=== PATIENT | male | born 1990 | race American Indian/Alaskan Native ===

== ENCOUNTER 2019-02-28 04:26 | Emergency (ER) | payer SELFPAY ==
[2019-02-28 04:33] VITALS: BP 152/79
[2019-02-28] MEDS ORDERED: XYLOCAINE 2% INFILTRATI STA (07:45)
[2019-02-28] MEDS ORDERED: BOOSTRIX IM ONE (08:05)
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
== END 2019-02-28 08:23 | disposition home or self-care (01) ==
LOC: ED 04:26
DX: S51.012A Laceration without foreign body of left elbow, initial encounter (principal); F17.200 Nicotine dependence, unspecified, uncomplicated; F12.10 Cannabis abuse, uncomplicated; Y08.89XA Assault by other specified means, initial encounter; Y93.89 Activity, other specified; Y92.89 Other specified places as the place of occurrence of the external cause; Y99.8 Other external cause status
CPT/HCPCS: 90471; 90715

== ENCOUNTER 2020-11-22 13:58 | Emergency (ER) | payer SELFPAY ==
[2020-11-22 14:16] VITALS: BP 136/88
--- NOTE | 2020-11-22 14:50 | XRay Report ---
LEFT KNEE 3 VIEWS INDICATION / CLINICAL INFORMATION: Left knee pain. COMPARISON: None available. FINDINGS: BONES / JOINT(S): The joint spaces are well-maintained. No significant arthritis. There is no evidenc e of fracture, subluxation, destructive lesion or joint effusion. SOFT TISSUES: No significant abnormality. ADDITIONAL FINDINGS: None. Signer Name: Andrew White MD Signed: 11/22/2020 2:46 PM Workstation Name: [id number]
--- NOTE | 2020-11-22 15:54 | Emergency Department Report ---
ED General Adult HPI - General Chief complaint: Extremity Injury, Lower Stated complaint: LT LEG INJURY POSSIBLE FRACTURED Time Seen by Provider: 11/22/20 15:43 Source: patient Mode of arrival: Wheelchair Limitations: No Limitations - History of Present Illness Initial comments: 30-year-old male patient presents emergency department with complaints of tr aumatic left knee pain starting today. Patient states he was playing basketball when he jumped for the ball and "landed wrong." States he heard a "crack" in his left knee upon landing. He has been unable to bear weight on his left leg since the injury. No history of prior injuries to the left knee. Denies hip pain, ankle pain, foot pain, paresthesias, numbness, skin color changes. Denies all other complaints at this time. Severity scale (0 -10): 6 - Related Data Previous Rx's Medication Instructions Recorded Last Taken Type Acetaminophen/Codeine [Tylenol #3] 1 tab PO Q6H PRN #20 tab 02/10/15 Unknown Rx Famotidine [Pepcid] 20 mg PO BID #30 tablet 02/10/15 Unknown Rx Hyoscyamine Subl [Levsin Sl 0.125 0.125 mg SL Q6HR PRN #15 tab 02/10/15 Unknown Rx TAB] Promethazine [Phenergan TAB] 25 mg PO Q6HR PRN #20 tab 02/10/15 Unknown Rx Chlorhexidine Gluconate [Hibiclens] 10 ml TP BID #240 liquid 02/28/19 Unknown Rx cephALEXin [Keflex] 500 mg PO Q6HR #40 capsule 02/28/19 Unknown Rx Naproxen 500 mg PO BID #20 tablet 11/22/20 Unknown Rx Allergies Allergy/AdvReac Type Severity Reaction Status Date / Time shrimp Allergy Swelling Verified 11/22/20 14:12 ED Review of Systems ROS: Stated complaint: LT LEG INJURY POSSIBLE FRACTURED Other details as noted in HPI Other: CARDIOVASCULAR: Negative for chest pain. PULMONARY: Negative for dyspnea. GASTROINTESTINAL: Negative for abdominal pain. MUSCULOSKELETAL: Positive for left knee pain. NEUROLOGICAL: Negative for headache. INTEGUMENTARY: Negative for ecchymosis. ED Past Medical Hx - Past Medical History Previous Medical History?: No - Surgical History Past Surgical History?: No - Social History Smoking Status: Never Smoker Substance Use Type: None - Medications Home Medications: Home Medications Medication Instructions Recorded Confirmed Last Taken Type Acetaminophen/Codeine [Tylenol #3] 1 tab PO Q6H PRN #20 tab 02/10/15 Unknown Rx Famotidine [Pepcid] 20 mg PO BID #30 tablet 02/10/15 Unknown Rx Hyoscyamine Subl [Levsin Sl 0.125 0.125 mg SL Q6HR PRN #15 tab 02/10/15 Unknown Rx TAB] Promethazine [Phenergan TAB] 25 mg PO Q6HR PRN #20 tab 02/10/15 Unknown Rx Chlorhexidine Gluconate [Hibiclens] 10 ml TP BID #240 liquid 02/28/19 Unknown Rx cephALEXin [Keflex] 500 mg PO Q6HR #40 capsule 02/28/19 Unknown Rx Naproxen 500 mg PO BID #20 tablet 11/22/20 Unknown Rx ED Physical Exam - General Limitations: No Limitations - Other Other exam information: General: Awake, appropriately interactive, no acute distress. Neck: Supple. Full range of motion intact. Cardiovascular: Normal peripheral perfusion. Pulmonary: No respiratory distress. Patient is speaking normally without use of accessory muscles. Skin: No apparent rashes or lesions. Neurological: No facial asymmetry. Speech is clear. Follows commands. Patient is alert and oriented. Musculoskeletal: Tenderness to palpation along the lateral aspect of the left knee with mild soft tissue swelling. Flexion and extension mechanisms of the knee are painful but intact. Anterior drawer sign is negative. Valgus and varus stress tests are negative. Distal neurovascular and motor/sensory function intact. Psych: Cooperative. Appropriate mood and affect. ED Course Vital Signs 11/22/20 14:15 Temperature 98 F Pulse Rate 83 Respiratory 20 Rate Blood Pressure 136/88 [Right] O2 Sat by Pulse 100 Oximetry ED Medical Decision Making - Medical Decision Making Differential diagnosis including but not limited to: sprain, strain, fracture, contusion, dislocation, ligamentous injury, meniscal injury On reevaluation, patient remains stable. Repeat neurovascular exam remains intact. X-ray of the knee without acute process. History and exam findings suggestive of soft tissue injury; no clinical indication for further diagnostic work-up on an emergent basis at this time. Patient will be discharged home with knee immobilizer, crutches, appropriate analgesics, and referral to orthopedics for close outpatient follow-up. It was explained to the patient that his injury may be attributable to collateral ligament and/or meniscal disruption, which would require outpatient MRI for definitive diagnosis. Patient expressed understanding and is agreeable to plan of care. RICE precautions discussed. Strict return precautions provided. Repeat exam is unremarkable and benign. History, exam, diagnostic testing, and current condition do not suggest worrisome pathology to warrant further testing, continued ED treatment, admission, or surgical evaluation at this point. Given the low probability of a significant medical illness, it would be more likely to result in harm than benefit to perform further testing at this stage. Discussed findings, presumptive diagnosis, need for follow-up and specific signs/symptoms that should prompt immediate return to the emergency department. Instructions were explained in detail to the patient in addition to giving written discharge information. Patient expressed understanding and was given the opportunity to ask questions, all of which were satisfactorily answered prior to discharge home. Critical care attestation.: If time is entered above; I have spent that time in minutes in the direct care of this critically ill patient, excluding procedure time. ED Disposition Clinical Impression: Left knee injury Qualifiers: Encounter type: initial encounter Qualified Code(s): S89.92XA - Unspecified injury of left lower leg, initial encounter Disposition: DC- TO HOME OR SELFCARE Is pt being admited?: No Does the pt Need Aspirin: No Condition: Stable Instructions: How to Use a Knee Immobilizer, [id number] Additional Instructions: Take Tylenol every 4 hours as needed for pain. Take Naprosyn twice daily with food as needed for pain. Wear knee immobilizer as directed. Use crutches as needed. Keep left knee elevated as often as possible to reduce swelling. Apply ice to the affected area as often as possible to reduce swelling. Follow-up with Dr. Michelle, orthopedics, this week. Call tomorrow to schedule an appointment. See referral information below. Return to the emergency department immediately for new or worsening symptoms. Prescriptions: Naproxen 500 mg PO BID #20 tablet Referrals: ZORA MICHELLE MD [Staff Physician] - 3-5 Days Time of Disposition: 15:54
== END 2020-11-22 19:08 | disposition home or self-care (01) ==
LOC: ED 13:58
DX: S89.92XA Unspecified injury of left lower leg, initial encounter (principal); Z91.013 Allergy to seafood; Z79.899 Other long term (current) drug therapy; X50.1XXA Overexertion from prolonged static or awkward postures, initial encounter; Y93.67 Activity, basketball; Y92.89 Other specified places as the place of occurrence of the external cause; Y99.8 Other external cause status
CPT/HCPCS: 99283